=== PATIENT | male | born 1965 ===

== ENCOUNTER 2019-04-06 03:38 | Emergency (ER) | payer SELFPAY ==
[~2019-04-06] VITALS: Ht 167.6 cm; Wt 7.3 kg
[2019-04-06 03:48] VITALS: Ht 167.6 cm; Wt 7.3 kg
[2019-04-06 05:25] LABS: BASOPHIL % 1.4 % (0-2); PLATELET COUNT 221 x10^3mcL (130-400)
[2019-04-06 05:26] LABS: CALCIUM 8.2 mg/dL (8.5-10.1); CARBON DIOXIDE 29.6 mmol/L (21-32); CHLORIDE SERUM 102 mmol/L (98-107); CREATININE SERUM 0.9 mg/dL (0.7-1.3); GFR1 > 60 mL/min; GLUCOSE SERUM 111 mg/dL (74-106); POTASSIUM SERUM 3.5 mmol/L (3.5-5.1); SODIUM SERUM 139 mmol/L (136-145)
[2019-04-06 05:31] LABS: ALBUMIN 3.4 g/dL (3.4-5.0); ALKALINE PHOSPHATASE 62 U/L (46-116); ALT/SGPT 32 U/L (16-63); AST/SGOT 26 U/L (15-37); BILIRUBIN TOTAL 0.23 mg/dL (0.20-1.00); TOTAL PROTEIN, SERUM 6.9 g/dL (6.4-8.2)
[2019-04-06 16:26] VITALS: BP 117/73
== END 2019-04-06 16:26 | disposition home or self-care (01) ==
LOC: ED 03:38
PROVIDERS: Emergency Medicine
DX: F05 Delirium due to known physiological condition (principal)
CPT/HCPCS: 36415; G0480; J1630; J2060; J7030